=== PATIENT | male | born 1960 | race Caucasian/White ===

== ENCOUNTER 2022-07-02 11:27 | Emergency (ER) | payer OTHER, SELFPAY ==
[2022-07-02 11:57] VITALS: BP 108/74; PULSE 100; RESP 18; TEMP 36.3; O2SAT 96; BMI 31.5
--- NOTE | 2022-07-02 12:26 | ED.NURSE ---
last tetanus 07/07/2016
--- NOTE | 2022-07-02 12:45 | ED.NURSE ---
wound was dressed with bacitracin, bandaid, gauze, coban. did give extra gloves. was told not to get wet.
--- OUTSIDE RECORDS SUMMARY | 2022-07-02 12:48 | XMS_ITS ---
:1960 Author Care Team Providers Name Role Phone Naga Busby Primary Care Provider Unavailable Allergies Code Code System Name Reaction Severity Status Onset NKDA ? Notes: Allergen: NO KNOWN ALLERGIES Medications Name Status Start Date Stop Date ? ? aspirin 81 mg chewable tablet Active ? No t available CHEW 1 TABLET BY MOUTH EVERY DAY glipizide 10 mg tablet Completed ? Take 0.5 tablets every day by oral route. glipizide 5 mg tablet Completed ? 06/28/2022 TAKE ONE TABLET(5MG) BY MOUTH EVERY DAY lisinopril 10 mg tablet Active ? Not avai lable Take 1 tablet every day by oral route. lisinopril 2.5 mg tablet Completed ? 022 TAKE ONE TABLET BY MOUTH EVERY DAY metformin 500 mg tablet Active ? Not avai lable TAKE TWO TABLETS BY MOUTH TWICE A DAY pravastatin 20 mg tablet Completed 05/25/2015 016 1 qpm simvastatin 10 mg tablet Active ? Not enzo ilable TAKE ONE TABLET BY MOUTH EVERY DAY IN THE EVENING Problems Name Status Onset Date Source ? Type 2 Diabetes Mellitus Active 08/12/2021 ? Hyperlipidemia Active 04/12/2022 ? Essential Hypertension Active 04/12/2022 ? Notes: Problem: Tobacco user Status: N on-Chronic Problem: Diabetes mellitus without complication Status: Non-Chronic Problem: Lactose intolerance Status: Non-Chronic Problem: Type II diabetes mellitus uncontrolled Status: Non-Chronic Procedures None recorded. Results Lab Results Date Name Specimen Result Interpretation Description Value Range Status Address ? 02/18/2022 CBC W/ Auto High White Blood 11.12 ? [facility] Diff Count Hospital: [address] [facility] ? ? ? Hemoglobin 14.2 ? Final [facility] Hospital: [address] [facility] ? ? ? Platelet Count 302 ? Final [facility] Hospital: [address] [facility] 02/18/2022 Lipid Panel, ? Creatinine 1.3 ? [facility] Serum Office: [facility] [place], [place] ? ? ? Alt 34 ? Final [place] Office: [address] [facility] [place] [place], [place] ? ? ? Total 172 ? Final [place] Cholesterol Offic e: [address] [facility] [place], [place] ? ? High Triglycerides 224 ? Final Fa [place] Office: [address] [facility] [place] [place], [place] ? ? ? Hdl 43 ? Final [place] Office: [address] [facility] [place] [place], [place] ? ? ? Ldl 84 ? Final [place] Office: [address] Tawnya Jorge, [place] 02/18/2022 CMP, Serum or ? Creatinine 1.3 ? F inal [place] Plasma Office: [address] [facility] [place], [place] ? ? ? Alt 34 ? Final [place] Office: [address] [facility] [place] [place], [place] ? ? ? Total 172 ? Final [place] Cholesterol Offic e: [address] [facility] [place], [place] ? ? High Triglycerides 224 ? Final [place] Office: [address] [facility] [place] [place], [place] ? ? ? Hdl 43 ? Final [place] Office: [address] [facility] [place] [place], [place] ? ? ? Ldl 84 ? Final [place] Office: [address] [facility] [place] [place], [place] 02/18/2022 HbA1C High Hemoglobin a1C 6.7 ? Keyana Jean (Hemoglobin Offic e: 1415 a1C), Blood [facility] Alex Ramiresibault 07/21/2021 Lipid Panel, ? Creatine 1.0 ? Keyana otto [place] Serum Office: [address] [facility] [place] [place], [place] ? ? ? Alt 22 ? Final [place] Office: [address] [facility] [place] [place], [place] ? ? ? Total 173 ? Final [place] Cholesterol Offic e: [address] [facility] [place], [place] ? ? ? Triglycerides 249 ? Final [place] Office: [address] [facility] [place] [place], [place] ? ? ? Hdl 48 ? Final [place] Office: [address] [facility] [place] [place], [place] ? ? ? Ldl 75 ? Final [place] Office: [address] [facility] [place] [place], [place] 07/21/2021 CMP, Serum or ? Creatine 1.0 ? Fernandez phipps [place] Plasma Office: [address] [facility] [place] [place], [place] ? ? ? Alt 22 ? Final [place] Office: [address] [facility] [place], [place] ? ? ? Total 173 ? Final [place] Cholesterol Offic e: [address] [facility] [place], [place] ? ? ? Triglycerides 249 ? Final [place] Office: [address] [facility] [place], [place] ? ? ? Hdl 48 ? Final [place] Office: [address] [facility] [place], [place] ? ? ? Ldl 75 ? Final [place] Office: 14 [address] Tawnya chambers [place], [place] 07/21/2021 Hemoglobin ? Creatinine 1.0 ? Keyana l [place] a1C/hemoglobin Of fice: 1415 Total, QN, Town S quare Blood [place], [place] ? ? ? Alt 22 ? Final [place] Office: [address] Tawnya chambers [place], [place] ? ? ? Total 173 ? Final [place] Cholesterol Offic e: [address] [facility] [place], [place] ? ? ? Triglycerides 249 ? Final [place] Office: [address] [facility] [place], [place] ? ? ? Hdl 48 ? Final [place] Office: [address] Tawn[address] chambers [place], [place] ? ? ? Ldl 75 ? Final [place] Office: [address] [facility] [place], [place] ? ? ? White Blood 10.83 ? Final Clarsia [place] Count Office: 14 15 Tawn[address] chambers [place], [place] ? ? ? Hemoglobin 15.2 ? Final Farib jazmin Office: 14 [address] Tawn[address] chambers [place], [place] ? ? ? Platelet Count 288 ? Final F [place] Office: 14 [address] Tawn[address] chambers [place], [place] ? ? ? Hemoglobin 15.2 ? Final Farib jazmin Office: 14 [address] Tawn[address] chambers [place], [place] 07/21/2021 CBC W/ Auto ? Creatinine 1.0 ? Fin al [place] Diff Office: 14 [address] Tawnya chambers [place], [place] ? ? ? Alt 22 ? Final [place] Office: [address] [facility] [place], [place] ? ? ? Total 173 ? Final [place] Cholesterol Offic e: [address] [facility] [place], [place] ? ? ? Triglycerides 249 ? Final [place] Office: [address] [facility] [place], [place] ? ? ? Hdl 48 ? Final [place] Office: 14 [address] Tawnya chambers [place], [place] ? ? ? Ldl 75 ? Final [place] Office: [address] [facility] [place], [place] ? ? ? White Blood 10.83 ? Final Clarisa [place] Count Office: 14 [address] Tawn[address] chambers [place], [place] ? ? ? Hemoglobin 15.2 ? Final Farib jazmin Office: [address] [facility] [place], [place] ? ? ? Platelet Count 288 ? Final F a[place] Office: [address] [facility] [place], [place] ? ? ? Hemoglobin 15.2 ? Final Farib jazmin Office: [address] [facility] [place], [place] 07/21/2021 Lipid Panel, ? Creatinine 1.0 ? Fi nal [place] Serum Office: 14 [address] [facility] [place], [place] ? ? ? Alt 22 ? Final [place] Office: [address] [facility] [place], [place] ? ? ? Total 173 ? Final [place] Cholesterol Offic e: [address] [facility] [place], [place] ? ? ? Triglycerides 249 ? Final Fa [place] Office: [address] [facility] [place], [place] ? ? ? Hdl 48 ? Final [place] Office: [address] [facility] [place], [place] ? ? ? Ldl 75 ? Final [place] Office: [address] [facility] [place], [place] ? ? ? White Blood 10.83 ? Final Clarisa [place] Count Office: 14 [address] Tawnya chambers [place], [place] ? ? ? Hemoglobin 15.2 ? Final Farib jazmin Office: [address] [facility] [place], [place] ? ? ? Platelet Count 288 ? Final F [place] Office: [address] [facility] [place], [place] ? ? ? Hemoglobin 15.2 ? Final Farib jazmin Office: [address] [facility] [place], [place] 07/21/2021 CMP, Serum or ? Creatinine 1.0 ? F inal [place] Plasma Office: [address] [facility] [place], [place] ? ? ? Alt 22 ? Final [place] Office: [address] [facility] [place], [place] ? ? ? Total 173 ? Final [place] Cholesterol Offic e: [address] [facility] [place], [place] ? ? ? Triglycerides 249 ? Final [place] Office: [address] [facility] [place], [place] ? ? ? Hdl 48 ? Final [place] Office: 14 [address] [facility] Alex Dunbar[place] ? ? ? Ldl 75 ? Final [place] Office: 14 [address] [facility] Alex [place]bar[place] ? ? ? White Blood 10.83 ? Final Clarisa [place] Count Office: 14 15 [facility] Alex [place] ? ? ? Hemoglobin 15.2 ? Final Farib jazmin Office: 14 [address] [facility] Alex [place] ? ? ? Platelet Count 288 ? Final F a[place] Office: 14 [address] [facility] Alex [place] ? ? ? Hemoglobin 15.2 ? Final Farib jazmin Office: 14 [address] [facility] Alex [place]bar[place] 02/08/2021 HbA1C ? No observation ? ? ? [place] (Hemoglobin recorded. Of fice: 1415 a1C), Blood [facility] 02/05/2021 HbA1C ? Humoglobin a1C 7.1 ? Keyana otto [place] (Hemoglobin Offic e: 1415 a1C), Blood [facility] 11/04/2020 CBC W/ Auto ? Creatinine 1.19 ? Fin desire [facility] Diff [place] [facility]: [address], [place] ? ? ? Alt 28 ? Final [facility] [place] [facility]: [address], [place] ? ? ? Hdl 46 ? Final [facility] [place] [facility]: [address] [place] ? ? ? Ldl 82 ? Final [facility] [place] [facility]: [address] [place] ? ? ? Total 159 ? Final [facility] Cholesterol [place] [facility] [facility]: [address] [place] ? ? High Triglycerides 156 ? Final Al [facility] [place] [facility]: [address] [place] ? ? ? Wbc 10.5 ? Final [facility] [place] [facility]: [address] [place] ? ? ? Hgb 15.4 ? Final [facility] [place] [facility]: [address] [place] ? ? ? Platelet Count 305 ? Final A [facility] [place] [facility]: [address], [place] 11/04/2020 Lipid Panel, ? Creatinine 1.19 ? Fi nal [facility] Serum [place] [facility]: [address], [place] ? ? ? Alt 28 ? Final [facility] [place] [facility]: [address], [place] ? ? ? Hdl 46 ? Final [facility] [place] [facility]: [address] [place] ? ? ? Ldl 82 ? Final [facility] [place] [facility]: [address] [place] ? ? ? Total 159 ? Final [facility] Cholesterol [place] [facility]: [address] [place] ? ? High Triglycerides 156 ? Final Al [facility] [place] [facility]: [address], [place] ? ? ? Wbc 10.5 ? Final [facility] [place] [facility]: [address], [place] ? ? ? Hgb 15.4 ? Final [facility] [place] [facility]: [address] [place] ? ? ? Platelet Count 305 ? Final A [facility] [place] [facility]: [address] [place] 11/04/2020 CMP, Serum or ? Creatinine 1.19 ? F inal [facility] Plasma [place] [facility]: [address], [place] ? ? ? Alt 28 ? Final [facility] [place] [facility]: [address], [place] ? ? ? Hdl 46 ? Final [facility] [place] [facility]: [address] [place] ? ? ? Ldl 82 ? Final [facility] [place] [facility]: [address] [place] ? ? ? Total 159 ? Final [facility] Cholesterol [place] [facility]: [address] [place] ? ? High Triglycerides 156 ? Final [facility] [place] [facility]: [address] [place] ? ? ? Wbc 10.5 ? Final [facility] [place] [facility]: [address], [place] ? ? ? Hgb 15.4 ? Final [facility] [place] [facility]: [address] [place] ? ? ? Platelet Count 305 ? Final [facility] [place] [facility]: [address] [place] 11/04/2020 Urinalysis, ? No observation ? ? ? Paml Patient Complete recorded. [facility] b: [address] Bernice Kaplan Past Encounters 06/28/2022 Type 2 Diabetes Mellitus without Complic ation; Hyperlipidemia; Essential Hypertension Naga Busby MD: [address] [place] [phone], Ph. 04/19/2022 Type 2 Diabetes Mellitus without Complic ation; Essential Hypertension Naga Busby MD: [address] [place] [phone], Ph. 04/12/2022 Essential Hypertension; Type 2 Diabetes Mellitus without Complication; Hyperlipidemia Naga Busby MD: [address] [place] [phone], Ph. 10/26/2021 Type 2 Diabetes Mellitus without Complic ation Naga Busby MD: [address] [place] [phone], Ph. 08/12/2021 Type 2 Diabetes Mellitus without Complic ation Naga Busby MD: [address] [facility] [place] [phone], Ph. 07/15/2021 Type 2 Diabetes Mellitus without Complic ation Naga Busby MD: [address] [facility] [place] [phone], Ph. 03/11/2021 Type 2 Diabetes Mellitus without Complic ation Naga Busby MD: [address] [facility] [place] [phone], Ph. Social History Tobacco Smoking Status Current Some Day Smoker Vaccine List Notes: COVID boosted (two times) Plan of Care Patient Goals get glucose down and then BP and lipids Patient Instructions watch for cough, eat regularly continue diet, watch for diarrhea from metformin and cough from lisinopril, cut glipizide in half and take in am, call a bout any problems continue diet and metformin, omit simva statin (another statin could be substituted) , call in a week eat smaller meals, try to loose weight, report diarrhea share booklet on diet with family record BP 2-3 times a week in afternoon , record in diary, bring to next visit Reminders Provider Appointments None recorded. ? ? Lab None recorded. ? ? Referral None recorded. ? ? Procedures None recorded. ? ? Surgeries None recorded. ? ? Imaging None recorded. ? ? Vitals 06/28/2022 05:15PM ESTABLISHED PATIENT Height Weight BMI Blood Pressure 5 ft 5 in 170 lbs 28.3 kg/m2 124/75 mm[Hg] 04/19/2022 05:15PM ESTABLISHED PATIENT Height Weight BMI Blood Pressure 5 ft 5 in 170 lbs 28.3 kg/m2 136/91 mm[Hg] 10/26/2021 06:30PM Established patient 20 Weight Blood Pressure 165.8 lbs 143/91 mm[Hg] 08/12/2021 11:20AM Established patient 20 Weight Blood Pressure 165 lbs 149/93 mm[Hg] 07/15/2021 09:00AM Established patient 20 Weight Blood Pressure 162 lbs 124/79 mm[Hg] 03/11/2021 09:00AM Established patient 20 Weight Blood Pressure 165 lbs 144/82 mm[Hg] 11/04/2020 Weight Blood Pressure 160 lbs 126/82 mm[Hg] 04/23/2019 Blood Pressure 111/68 mm[Hg] 10/25/2018 Blood Pressure 141/95 mm[Hg] 09/18/2018 Blood Pressure 120/68 mm[Hg] 08/16/2016 Blood Pressure (1) 120/76 mm[Hg] (2) 142/91 mm[Hg] 02/25/2016 Blood Pressure 125/85 mm[Hg] 09/24/2015 Blood Pressure (1) 122/77 mm[Hg] (2) 136/85 mm[Hg] 07/16/2015 Blood Pressure 123/78 mm[Hg] 02/03/2015 Blood Pressure 142/89 mm[Hg] 11/11/2014 Blood Pressure 142/89 mm[Hg] 10/14/2014 Blood Pressure 133/90 mm[Hg] 09/16/2014 Blood Pressure 118/68 mm[Hg]
--- OUTSIDE RECORDS SUMMARY | 2022-07-02 12:48 | XMS_ITS | Encounter Summary ---
:1960 Author Reason for Visit this is a 62 year old man returning in [facility] up for his diabetes, not taking glipizide, glucoses arnd 120, missed las t apt, needs regular visits Assessment and Plan 1. Type 2 diabetes mellitus without com plication last HBA1C 6.7 and reported control is good ? CBC ? CMP, serum or plasma ? lipid panel, serum ? hemoglobin A1C/hemoglobin total, QN, blood ? microalbumin, urine ? noninvasive colorectal cancer DNA + o ccult blood screening, QL, stool ? aspirin 81 mg chewable tablet 2. Hyperlipidemia no probs with med ? simvastatin 10 mg tablet ? lisinopril 10 mg tablet 3. Essential hypertension last BP 124/79 ? lisinopril 10 mg tablet Discussion Note: None recorded.Patient educational handouts: No information available. Plan of Care Patient Instructions watch for cough, eat regularly Reminders Provider Appointments Return to Office on or around Naga Busby MD 12/26/2022 ? Lab Work on or around [place] [facility], [facility] 12/26/2022 Lab Cbc 06/28/2022 [facility] ital- Lab ? CMP, Serum or Plasma 06/28/2022 [facility]- Lab ? Lipid Panel, Serum 06/28/2022 [facility]- Lab ? Hemoglobin 06/28/2022 [facility] ital- a1C/hemoglobin Total, QN, Lab Blood ? Microalbumin, Urine 06/28/2022 [facility]- Lab ? Noninvasive Colorectal 06/28/2022 [facility]- Cancer DNA + Occult Blood Lab Screening, QL, Stool Referral None recorded. ? ? Procedures None recorded. ? ? Surgeries None recorded. ? ? Imaging None recorded. ? ? Medications Name Start Date ? ? aspirin 81 mg chewable tablet ? CHEW 1 TABLET BY MOUTH EVERY DAY lisinopril 10 mg tablet ? Take 1 tablet every day by oral route. metformin 500 mg tablet ? TAKE TWO TABLETS BY MOUTH TWICE A DAY simvastatin 10 mg tablet ? TAKE ONE TABLET BY MOUTH EVERY DAY IN THE EVENING Medications Administered None recorded. Vitals Height Weight BMI Blood Pressure 5 ft 5 in 170 lbs 28.3 kg/m2 124/75 mm[Hg] Results Lab Results None recorded. Allergies Code Code System Name Reaction Severity Onset NKDA ? ? ? Notes: Allergen: NO KNOWN ALLERGIES Problems Name Status Onset Date Source ? Type 2 Diabetes Mellitus Active 08/12/2021 ? Hyperlipidemia Active 04/12/2022 ? Essential Hypertension Active 04/12/2022 ? Notes: Problem: Tobacco user Status: N on-Chronic Problem: Diabetes mellitus without complication Status: Non-Chronic Problem: Lactose intolerance Status: Non-Chronic Problem: Type II diabetes mellitus uncontrolled Status: Non-Chronic Procedures None recorded. Vaccine List Notes: COVID boosted (two times) Social History Tobacco Smoking Status Current Some Day Smoker What is your level of alcohol Occasional Notes: o nly beer consumption? Do you feel stressed (tense, restless, [id number] nervous, or anxious, or unable to sleep at night)? Functional Status Unknown. Past Encounters 06/28/2022 Type 2 Diabetes Mellitus without Complic ation; Hyperlipidemia; Essential Hypertension Naga Busby MD: [address] [place] [phone], Ph. History of Present Illness None recorded. Review of Systems ? Notes: <div>no angina, not sob</div > Physical Exam None recorded.
--- OUTSIDE RECORDS SUMMARY | 2022-07-02 12:48 | XMS_ITS | Encounter Summary ---
:1960 Author Reason for Visit this [facility] 61 [facility]. He has stopped his simvastatin because he thought it was ca using his blood sugars to go up, no myalgias. He has been incrreasingly careful with h is meal planning but his weight is up. [facility] glucoses are arnd 150. Assessment and Plan 1. Type 2 diabetes mellitus without com plication based on his home reporting his control needs to improve ? glipizide 10 mg tablet ? 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 Essential hypertension last BP 143/91 and dropping slightly to 136/91 Discussion Note hesitant about booster, need ro inquire each visit Patient educational handouts: No information available. Plan of Care Patient Goals get glucose down and then BP and lipids Patient Instructions continue diet, watch for diarrhea from metformin and cough from lisinopril, cut glipizide in half and take in am, call a bout any problems Reminders Provider Appointments Return to Office on or around Naga Busby MD 12/26/2022 ? Lab Work on or around Miranda Byrd, [facility] 12/26/2022 Lab None recorded. ? ? Referral Digital X Ray Service Engineer Referral 04/19/2022 ? Procedures None recorded. ? ? Surgeries [...] in 170 lbs 28.3 kg/m2 136/91 mm[Hg] Results Lab Results None recorded. Allergies [...] consumption? Do you feel stressed (tense, restless, [id number] nervous, or anxious, or unable to sleep at night)? Functional Status Unknown. Past Encounters 04/19/2022 Type 2 Diabetes Mellitus without Complic ation; Essential Hypertension Naga Busby MD: [address] [place] [phone], Ph. 04/12/2022 Essential Hypertension; Type 2 Diabetes Mellitus without Complication; Hyperlipidemia Naga Busby MD: [address] [place] [phone], Ph. History of Present Illness None recorded. Review of Systems None recorded. Physical Exam None recorded.
--- OUTSIDE RECORDS SUMMARY | 2022-07-02 12:48 | XMS_ITS | Encounter Summary ---
:1960 Author Reason for Visit this is a 61 year old man for telephone visit as he returns from work arnd 4:30 pm. He has reduced his consumption of sugary foods as well as limiting his meat. He has stopped smoking. In spite of his numbers he thinks that the changes in simvastatin and lisinopril have effected his glucose numbers. He is also requesting an medical director of hospice exam. Assessment and Plan 1. Essential hypertension lisinopril was increased from 2.5 mg to 10 mg last visit, no BP today 2. Type 2 diabetes mellitus without com plication HBA1C 6.7 with glucose 97 ? medical director of hospice referral 3. Hyperlipidemia lipids 172/214, as he thinks that simva statin is effecting his glucose- omit it for a week and reeval by phone Discussion Note: None recorded.Patient educational handouts: No information available. Plan of Care Patient Instructions continue diet and metformin, omit simva statin (another statin could be substituted) , call in a week Reminders Provider Appointments Return to Office on or around Naga Busby MD 12/26/2022 ? Lab Work on or around Miranda Byrd, [facility] 12/26/2022 Lab None recorded. ? ? 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 Procedures None recorded. ? ? Surgeries [...] THE EVENING Medications Administered None recorded. Vitals None recorded. Results Lab Results None recorded. Allergies Code [...] consumption? Do you feel stressed (tense, restless, [id number] nervous, or anxious, or unable to sleep at night)? Functional Status Unknown. Past Encounters 04/12/2022 Essential Hypertension; Type 2 Diabetes Mellitus without Complication; Hyperlipidemia Naga Busby MD: [address] [place] [phone], Ph. History of Present Illness None recorded. Review of Systems None recorded. Physical Exam None recorded.
--- OUTSIDE RECORDS SUMMARY | 2022-07-02 12:48 | XMS_ITS | Clinical Summary ---
:1960 Author Organization [facility] [place] [address] Care Team Providers Name Role Phone Navin Ornelas MD Unavailable Navarro Knowles MD Primary Care Provider [phone] Allergies No known active allergies Medications Medication Sig Dispensed Refills Start Date End Date Status aspirin enteric Take 1 tablet by 0 08/29/2012 Active coated 81 mg tablet mouth once daily with a meal. lisinopril (PRINIVIL; Take 1 tablet by 0 02/01/2016 Active ZESTRIL) 2.5 mg mouth once daily. tablet simvastatin (ZOCOR) Take 1 tablet by 0 02/01/2016 Active 20 mg tablet mouth at bedtime. metFORMIN Take 2 tablets by 0 05/03/2016 A ctive (GLUCOPHAGE) 1,000 mg mouth 2 times daily tablet with meals. 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 Problems Problem Noted Date Anal fissure 01/21/2010 Immunizations Name Administration Dates Next Due Td (Age >=7 Years) 05/21/2004 Family History Medical History Relation Name Comments Diabetes Daughter 2 Diabetes Mother Diabetes Sister 11 Thyroid Disease Sister 12 Relation Name Status Comments Brother 1 Alive Brother 2 Alive Brother 3 Alive Brother 4 Alive Brother 5 Daughter 1 Alive Daughter 2 Father (Age 70s) Mother Alive Sister 1 Alive Sister 2 Alive Sister 3 Alive Sister 4 Alive Sister 5 Alive Sister 6 Alive Sister 7 Alive Sister 8 Sister 9 Sister 10 Sister 11 Sister 12 Son 1 Alive Son 2 Alive Social History Tobacco Use Types Packs/Day Years Used Date Current Every Day Smoker Cigarettes 1 Smokeless Tobacco: Never Used Tobacco Cessation: Ready to Quit: No; Co unseling Given: Yes Comments: pack in two days Alcohol Use Standard Drinks/Week Comments Yes 0 (1 standard drink = 0.6 oz pure alcoho l) occassional Sex Assigned at Date Recorded Not on file Obstetrics History Last Filed Vital Signs Vital Sign Reading Time Taken Comments Blood Pressure 130/88 04/22/2021 9:10 AM CDT Pulse 73 04/22/2021 9:10 AM CDT Temperature 36.7 ??C (98 ??F) 05/03/2016 11:10 AM CDT Respiratory Rate 20 02/04/2016 8:39 AM CDT Oxygen Saturation 98% 04/22/2021 9:10 AM CDT Inhaled Oxygen Concentration - - Weight 74.1 kg (163 lb 6.4 oz) 04/22/2021 9:10 AM CDT Height 164 cm (5' 4.57) 05/03/2016 11:10 AM CDT Body Mass Index 27.56 05/03/2016 11:10 AM CDT Plan of Treatment Health Maintenance Due Date Last Done Comments Pneumococcal series for age 19-64 (1 - 1968 PCV) Tdap 1973 Hepatitis C screening for age 18-79 1980 Colonoscopy through age 75 2007 Zoster (shingles) series for age 50+ (1 of 2012 2) Tetanus booster 05/21/2014 05/21/2004 Depression screening for age 12+ 01/31/2017 02/01/2016 BMI (ht and wt on same day) for age 18+ 05/03/2017 05/03/20 16, 02/01/2016 COVID-19 vaccine series (3 - Booster for 03/05/2021 021, 12/18/2020 Pfizer series) Influenza for age 50-64 04/28/2022 Lipids for age 45-75 11/04/2025 11/04/2020, 09/22/2014 Results Not on filefrom Last 3 Months Insurance Payer Benefit Plan / Subscriber ID Effective Dates Phone Addre ss Type Group WC WORK[employer] BRADLEY MARIN [id number] 2021-Pro [address]UST[address] [place] [address] [employer] Occ Other 08/28/2000 ATTN [facility] [address] [address] [place] [address] Care Teams Director Motion Picture Relationship Specialty Start Date End Date Navarro Knowles MD PCP - General Family Practice 04/22/21 [address] [place] [address] Navin Ornelas MD Family Practice 07/18/[address] [place] [address] [address] [place] [address]
--- NOTE | 2022-07-04 15:38 | ED.WOUNDLAC ---
HPI - Wound/Laceration General Chief Complaint: Laceration/Wound Stated Complaint: Cut on Rt pinky finger Time Seen by Provider: 07/02/22 11:52 History of Present Illness HPI narrative: 62-year-old man presenting to the emergency department after a laceration sustained to his right 5th finger while at work. This actually occurred yesterday. Apparently reached to or into a tape dispenser and shaved the distal aspect of his finger. Sounds like it bled a good deal. Managed to control the bleeding. Here for further cares/recommendations. Looks like current on tetanus. This injury is not restricting movement; it is just painful. Has been applying alcohol and salt; the latter to stop the bleeding. Related Data Home Medications Medication Instructions Recorded Confirmed aspirin 81 mg tablet,delayed mg 07/02/22 release glipizide 5 mg tablet mg 07/02/22 lisinopril 10 mg tablet mg 07/02/22 metformin 500 mg tablet mg 07/02/22 simvastatin 10 mg tablet mg 07/02/22 Allergies Allergy/AdvReac Type Severity Reaction Status Date / Time No Known Drug Allergies Allergy Verified 07/02/22 12:01 Review of Systems Status of ROS: Reports: 6 or more systems reviewed and unremarkable except as noted in History and below [facility] Social History Smoking Status: Current every day smoker What tobacco products do you use: cigarettes Smoking packs per day: 1 Smoking cigarettes per day: 20.0 Years smoked: 45 Smoking pack-years: 45.00 Do you use any of these nicotine containing products: None Second hand tobacco smoke exposure: No How often do you have a drink containing alcohol: 2-4 times a month How many standard drinks containing alcohol do you have on a typical day: 5 or 6 How often do you have six or more drinks on one occasion: Weekly AUDIT-C Alcohol total score: 7 Non-prescribed substance use: denies use service: No Exam Narrative: Exam Narrative: Pleasant. NAD. Visit is conducted in Estonian by myself also aided by cook tortilla. dressed in work hat. Favoring right hand. Examination of this hand reveals an oval avulsion nearly full dermal. It is not actively bleeding. It is at the ulnar side of the distal phalanx; about 1 cm in maximal dimension. He pulls away with efforts at manipulation or exam. Appears to be painful. Well-perfused flexing extending all joints Const: Vital Signs, click to edit/add: Pulse is 100 Documenting provider has reviewed patient's vital signs: yes Course Course Hospital Course: This is a clean wound at this point. I do not think that there is enough here to over-sew nor is actively bleeding. Returned to apply antibiotic ointment and Gelfoam, Band-Aid and light gauze wrap. Hopefully the Gelfoam will provide further matrix and also limit further bleeding. Vital Signs Vital signs: Initial Vital Signs Temperature 97.3 F L 07/02/22 11:57 Temperature Source Temporal Artery Scan 07/02/22 11:57 Pulse Rate 100 07/02/22 11:57 Respiratory Rate 18 07/02/22 11:57 Blood Pressure 108/74 07/02/22 11:57 Blood Pressure Mean 85 07/02/22 11:57 Pulse Oximetry 96 07/02/22 11:57 Oxygen Delivery Method 07/02/22 11:57 Vital Signs Temperature 97.3 F L 07/02/22 11:57 Pulse Rate 100 07/02/22 11:57 Respiratory Rate 18 07/02/22 11:57 Blood Pressure 108/74 07/02/22 11:57 Pulse Oximetry 96 07/02/22 11:57 Oxygen Delivery Method 07/02/22 11:57 Temperature 97.3 F L 07/02/22 11:57 Pulse Rate 100 07/02/22 11:57 Respiratory Rate 18 07/02/22 11:57 Blood Pressure 108/74 07/02/22 11:57 Pulse Oximetry 96 07/02/22 11:57 Oxygen Delivery Method 07/02/22 11:57 Discharge Plan Discharge Clinical Impression: Avulsion of finger Patient Disposition: Home, Self-Care Condition: Stable Additional Instructions: While it is okay for initial cleaning or to try to stop bleeding, I would avoid further application of alcohol or hydrogen peroxide or salt as they will delay healing. Ibuprofen, elevation for comfort. Keep this current dressing on until Monday. Try not to take off the Gelfoam that is in place over the next week --if falls off, replace. After Monday change dressing daily with antibiotic ointment and Band-Aid. After a week can probably change to a dry dressing. Will need to protect from getting wet over this next week by wearing a finger cot / condom or gloves while at work. Si iván est? iván para la limpieza inicial o para tratar de detener el sangrado, evitar?a la aplicaci?n adicional de alcohol o per?xido de hidr?sourav o nilay, ya que retrasar?n la curaci?n. Ibuprofeno, elevaci?n para mayor comodidad. Mantenga zeke vendaje actual hasta el es. Trate de no quitarse el Gelfoam que est? en rodriguez lugar martha la pr?xima semana; si se , reempl?celo. Despu?s del lunes, cambie el vendaje diariamente con nikolay?ento antibi?bertha y curita. Despu?s de amanda semana probablemente puede cambiar a un vendaje seco. Tendr? que protegerse de mojarse martha la pr?xima semana usando amanda cuna / cond?n de dedo o guantes en el trabajo. Prescriptions: No Action metformin 500 mg tablet Label Comments: TAKE TWO TABLETS BY MOUTH TWICE A DAY simvastatin 10 mg tablet Label Comments: TAKE ONE TABLET BY MOUTH EVERY DAY IN THE EVENING aspirin 81 mg tablet,delayed release (DR/EC) Label Comments: TAKE ONE TABLET BY MOUTH EVERY DAY lisinopril 10 mg tablet Label Comments: TAKE ONE TABLET BY MOUTH EVERY DAY glipizide 5 mg tablet Label Comments: TAKE ONE TABLET(5MG) BY MOUTH EVERY DAY Follow Up/Referrals: Provider,Not a Local [Primary Care Provider] - Stand Alone Forms: MyHealth Info Instructions
== END 2022-07-02 12:55 | disposition home or self-care (01) ==
PROVIDERS: Emergency Provider Family Medicine
DX: S61.216A Laceration without foreign body of right little finger without damage to nail, initial encounter (principal); W26.8XXA Contact with other sharp object(s), not elsewhere classified, initial encounter; Y93.9 Activity, unspecified; Y92.9 Unspecified place or not applicable; Y99.0 Civilian activity done for income or pay
CPT/HCPCS: 99282; 99283

== ENCOUNTER 2023-04-14 16:35 | Emergency (ER) | payer SELFPAY ==
[2023-04-14 17:05] VITALS: BP 139/86; PULSE 87; RESP 18; TEMP 36.5; O2SAT 98
--- NOTE | 2023-04-14 18:01 | ED_ITS ---
HPI - General Adult General Chief complaint: Abdominal Pain Stated complaint: from urgent care, possbile pancreatitis Time Seen by Provider: 04/14/23 17:41 History of Present Illness HPI narrative: Patient reports pain in epigastric area for about one week. Pain seems worse with activity. 62-year-old man presenting to the emergency department with concern of epigastric area pain that begins around 9 or 10:00 a.m. escalating over the course the day and then settles by evening. He just can not identify any exacerbating or relieving factors. He does lift number of things at work but this does not actually exacerbated. Is worried something might be twisted inside. No nausea associated. There has been no trauma. Does not drink excessively. No nausea/vomiting. No shortness of breath. No fever. Does not have diagnosis of GERD. Rarely smokes cigarettes. Denies constipation. Tried some unclear pills from given by a friend, apparently these pills are from [place]. Unclear what these are. Related Data Home Medications Medication Instructions Recorded Confirmed aspirin 81 mg tablet,delayed mg 07/02/22 04/14/23 release glipizide 5 mg tablet mg 07/02/22 04/14/23 lisinopril 10 mg tablet mg 07/02/22 04/14/23 metformin 500 mg tablet mg 07/02/22 04/14/23 simvastatin 10 mg tablet mg 07/02/22 04/14/23 Previous Rx's Medication Instructions Recorded omeprazole 20 mg capsule,delayed 40 mg (2 x 20 mg) PO DAILY 15 days 04/14/23 release #30 caps Allergies Allergy/AdvReac Type Severity Reaction Status Date / Time No Known Drug Allergies Allergy Verified 04/14/23 14:36 Review of Systems Status of ROS: Reports: 6 or more systems reviewed and unremarkable except as noted in History and below PFSH PFS Social History Smoking Status: Smoker, status unknown Do you use any of these nicotine containing products: None Second hand tobacco smoke exposure: No How often do you have a drink containing alcohol: 2-4 times a month How many standard drinks containing alcohol do you have on a typical day: 1 or 2 How often do you have six or more drinks on one occasion: Weekly AUDIT-C Alcohol total score: 5 Non-prescribed substance use: denies use service: No Exam Narrative: Exam Narrative: Very pleasant. Energetic. NAD. Transitions without difficulty. Breathing easily. Oropharynx is unremarkable. Lungs are clear. Heart with regular rate and rhythm without murmur rub or gallop.. Abdomen is soft and not really tender. No masses. Not really able to reproduce this discomfort. Seems in the subxiphoid area that is describing it. He is not tender in the rib margins. Normal bowel sounds. Const: Vital Signs, click to edit/add: Vital Signs - 24 hr 04/14/23 17:05 Temperature 97.7 F Pulse Rate [Pulse Oximeter] 87 Respiratory Rate 18 Blood Pressure [facility]] 139/86 Pulse Oximetry 98 Documenting provider has reviewed patient's vital signs: yes Course Vital Signs Vital signs: Initial Vital Signs Temperature 97.7 F 04/14/23 17:05 Temperature Source Temporal Artery Scan 04/14/23 17:05 Pulse Rate 87 04/14/23 17:05 Respiratory Rate 18 04/14/23 17:05 Blood Pressure 139/86 04/14/23 17:05 Blood Pressure Mean 103 04/14/23 17:05 Pulse Oximetry 98 04/14/23 17:05 Vital Signs Temperature 97.7 F 04/14/23 17:05 Pulse Rate 87 04/14/23 17:05 Respiratory Rate 18 04/14/23 17:05 Blood Pressure 139/86 04/14/23 17:05 Pulse Oximetry 98 04/14/23 17:05 Temperature 97.6 F 04/14/23 20:00 Pulse Rate 68 04/14/23 20:00 Respiratory Rate 16 04/14/23 20:00 Blood Pressure 138/88 04/14/23 20:00 Pulse Oximetry 97 04/14/23 20:00 Oxygen Delivery Method Room Air 04/14/23 20:00 Medical Decision Making MDM Narrative Medical decision making narrative: Can certainly run some screening labs looking for evidence of pancreatitis or gallbladder disease. Puzzling clinical course frankly. Would almost seem to by timing be musculoskeletal or chest wall in some way but not consistent with clinical exam. Doubt vascular disruption given clinical picture/ story. I suppose exertional/cardiac strain? Not not pleuritic. Malignancy? Will run screening labs these might focus further evaluation. Also chest x-ray. Had some concern of a hernia as I understand it. I suppose a paraesophageal hernia/hiatal hernia might cause some discomfort here. Pneumothorax/pneumomediastinum? Labs show mild elevation white count. Chest x-ray by my read looks unremarkable. Maybe there is some mild gastritis. I would screen outpatient potentially for H pylori. No interventions were needed here. See patient discharge plan Lab Data Lab results reviewed: Yes I reviewed the patient's lab results Labs: Lab Results 04/14/23 04/14/23 Range/Units 18:24 18:30 WBC 12.31 H (4.50-11.00) K/uL RBC 4.84 (4.30-5.90) m/uL Hgb 14.6 (13.5-17.5) gm/dL Hct 45.3 (37.0-53.0) % MCV 94 (80-100) fL MCH 30 (26-34) pg MCHC 32 (32-36) gm/dL RDW Coeff of Gold 13.1 (11.5-15.5) % Plt Count 329 (140-440) K/uL Neut % (Auto) 58.2 (42.0-72.0) % Lymph % (Auto) 31.3 (20-44) % Waldo % (Auto) 6.3 (0.0-11.0) % Eos % (Auto) 3.4 (0.0-7.0) % Baso % (Auto) 0.6 (0.0-3.0) % Neut # (Auto) 7.20 H (1.7-7.0) K/uL Lymph # (Auto) 3.90 H (0.90-2.90) K/uL Waldo # (Auto) 0.80 (0.00-0.90) K/UL Eos # (Auto) 0.40 (0.00-0.50) K/uL Baso # (Auto) 0.10 (0.00-0.30) K/uL Abs Immat Gran (auto) 0.00 (0.00-0.30) K/uL Imm/Tot Granulo (auto) 0.2 % Sodium 143 (135-149) mmol/L Potassium 4.5 (3.6-5.1) mmol/L Chloride 109 (96-114) mmol/L Carbon Dioxide 27 (20-32) mmol/L BUN 21 (7-30) mg/dL Creatinine 1.1 (0.5-1.5) mg/dL Estimated GFR 77 ml/min Glucose 134 H (60-115) mg/dL Calcium 9.3 (8.4-10.6) mg/dL Total Bilirubin 0.4 (0.1-1.5) mg/dL Direct Bilirubin 0.1 (0.0-0.5) mg/dL AST 34 (12-35) U/L ALT 40 (4-50) U/L Alkaline Phosphatase 68 (40-150) U/L C-Reactive Protein 0.7 (0.5-1.0) mg/dL Total Protein 7.8 (6.0-8.3) g/dL Albumin 4.6 (3.3-5.0) g/dL Lipase 128 (23-300) U/L Urine Color Yellow (Yellow) Urine Appearance Clear (Clear) Urine pH 5.5 (5.0-8.5) Ur Specific [place] 1.025 (1.000-1.030) Urine Protein Negative (Negative) Urine Glucose (UA) Negative (Negative) Urine Ketones Negative (Negative) Urine Blood 1+ A (Negative) Urine Nitrite Negative (Negative) Urine Bilirubin Negative (Negative) Urine Urobilinogen 0.2 (0.2-1.0) Ur Leukocyte Esterase Negative (Negative) Urine RBC 0-2 (0-2) Urine WBC 0-2 (0-5) Ur Squamous Epith Cells None (None-Few) Urine Bacteria None (None) Discharge Plan Discharge Clinical Impression: Abdominal pain, epigastric Patient Disposition: Home, Self-Care Condition: Stable Additional Instructions: Take this medication omeprazole daily for 2 weeks and then reassess much discomfort you have. If it seems to be continuing I would follow in your clinic for further evaluation or more extensive imaging if they think it is necessary. In the meantime might also back off on the spicy food a little bit. Could try liquid antacid/anti-gas medication for breakthrough pain if needed Return for marked increase in pain, associated with shortness of breath lightheadedness or sweatiness. [place] zeke medicamento omeprazol diariamente martha 2 semanas y luego vuelva a evaluar muchas molestias que tenga. Si parece que contin?a, seguir?a en rodriguez cl?rose para amanda evaluaci?n adicional o im?genes m?s extensas si creen que es necesario. Mientras tanto, tambi?n podr?a retroceder un poco en la comida picante. Podr?a probar medicamentos anti?cidos l?quidos / antigases para el dolor irruptivo si es necesario Retorno para un marcado aumento del dolor, asociado con dificultad para respirar, aturdimiento o sudoraci?n. Prescriptions: New omeprazole 20 mg capsule,delayed release(DR/EC) 40 mg PO DAILY 15 Days Qty: 30 0RF Rx Instructions: Can substitute singular 40 mg capsule if available No Action metformin 500 mg tablet Patient Comments: TAKE TWO TABLETS BY MOUTH TWICE A DAY simvastatin 10 mg tablet Patient Comments: TAKE ONE TABLET BY MOUTH EVERY DAY IN THE EVENING aspirin 81 mg tablet,delayed release (DR/EC) Patient Comments: TAKE ONE TABLET BY MOUTH EVERY DAY lisinopril 10 mg tablet Patient Comments: TAKE ONE TABLET BY MOUTH EVERY DAY glipizide 5 mg tablet Patient Comments: TAKE ONE TABLET(5MG) BY MOUTH EVERY DAY Follow Up/Referrals: Provider,Not a Local [Referring] - Stand Alone Forms: MyHealth Info Instructions
--- NOTE | 2023-04-14 18:13 | CRLHL7_ITS ---
For Patients: As a result of the Cures Act, medical imaging exams and procedure reports are released immediately into your electronic medical record. You may view this report before your referring provider. If you have questions, please contact your health care provider. INDICATION: Subxiphoid pain TECHNIQUE: Chest 1 view COMPARISON: None FINDINGS: Cardiovascular and mediastinum: Heart size and vasculature are normal in caliber and appearance. Lungs and pleural spaces: Incidental 9 millimeter calcified granuloma within the left midlung. No sign of infiltrate or mass. No sign of pleural effusion. No pneumothorax. Bones and soft tissues: No significant findings. IMPRESSION: No acute findings. Dictated by Dylan Johnson MD @ 04/14/2023 7:30:29 PM (Electronically Signed)
[2023-04-14 18:30] LABS: Basophils Percent Auto 0.6 % (0.0-3.0); Eosinophils Percent Auto 3.4 % (0.0-7.0); Hematocrit 45.3 % (37.0-53.0); Hemoglobin* 14.6 gm/dL (13.5-17.5); Immature Granulocytes Pct Auto 0.2 %; Lymphocytes Percent Auto 31.3 % (20-44); Mean Corpuscular HGB Conc 32 gm/dL (32-36); Mean Corpuscular Hemoglobin 30 pg (26-34); Mean Corpuscular Volume 94 fL (80-100); Monocytes Percent Auto 6.3 % (0.0-11.0); Neutrophils Percent Auto 58.2 % (42.0-72.0); Platelet Count* 329 K/uL (140-440); RDW Coefficient of Variation % 13.1 % (11.5-15.5); Red Blood Count 4.84 m/uL (4.30-5.90); White Blood Count* 12.31 K/uL (4.50-11.00)
[2023-04-14 18:31] LABS: Slide Review Reflex No
[2023-04-14 18:36] LABS: Appearance Urine Clear (Clear); Bilirubin Urine Negative (Negative); Blood Urine 1+ (Negative); Color Urine Yellow (Yellow); Glucose Urine Negative (Negative); Ketones Urine Negative (Negative); Leukocyte Esterase Urine Negative (Negative); Nitrite Urine Negative (Negative); Protein Urine Negative (Negative); Specific Gravity Urine 1.025 (1.000-1.030); Urobilinogen Urine 0.2 (0.2-1.0); pH Urine 5.5 (5.0-8.5)
[2023-04-14 18:43] LABS: RBC Urine 0-2 (0-2); WBC Urine 0-2 (0-5)
[2023-04-14 18:45] LABS: Albumin* 4.6 g/dL (3.3-5.0)
[2023-04-14 18:46] LABS: Chloride* 109 mmol/L (96-114); Potassium* 4.5 mmol/L (3.6-5.1); Sodium* 143 mmol/L (135-149)
[2023-04-14 18:48] LABS: Alkaline Phosphatase* 68 U/L (40-150); Aspartate Amino Transferase* 34 U/L (12-35); Bilirubin Direct* 0.1 mg/dL (0.0-0.5); Bilirubin Total* 0.4 mg/dL (0.1-1.5); Total Protein* 7.8 g/dL (6.0-8.3)
[2023-04-14 18:49] LABS: Alanine Aminotransferase* 40 U/L (4-50); Creatinine* 1.1 mg/dL (0.5-1.5); Estimated Glomerular Filt Rate 77 ml/min; Lipase* 128 U/L (23-300)
[2023-04-14 18:50] LABS: Blood Urea Nitrogen* 21 mg/dL (7-30); Calcium* 9.3 mg/dL (8.4-10.6); Carbon Dioxide* 27 mmol/L (20-32); Glucose* 134 mg/dL (60-115)
[2023-04-14 18:53] LABS: C Reactive Protein* 0.7 mg/dL (0.5-1.0)
[2023-04-14] MEDS: OMEPRAZOLE 20 MG CAPSULE DR 40 MG PO (19:59)
[2023-04-14 20:00] VITALS: BP 138/88; PULSE 68; RESP 16; TEMP 36.4; O2SAT 97
== END 2023-04-14 20:04 | disposition home or self-care (01) ==
PROVIDERS: Emergency Provider Family Medicine; PCP Internal Medicine
DX: R10.13 Epigastric pain (principal)
CPT/HCPCS: 36415; 71045; 80048; 80076; 81001; 83690; 85025; 86140; 99284; A9270

== ENCOUNTER 2023-07-15 10:26 | Outpatient (REF) | payer OTHER, SELFPAY ==
[2023-07-15 10:51] LABS: Hemoglobin A1C* 7.4 % (0-5.6)
[2023-07-15 11:00] LABS: Albumin* 4.7 g/dL (3.3-5.0); Chloride* 108 mmol/L (96-114); Potassium* 4.1 mmol/L (3.6-5.1); Sodium* 145 mmol/L (135-149)
[2023-07-15 11:02] LABS: Anion Gap 9 mEq/L (7-15); Bilirubin Total* 0.3 mg/dL (0.1-1.5); Carbon Dioxide* 28 mmol/L (20-32); Cholesterol* 174 mg/dL (90-199); Creatinine* 1.1 mg/dL (0.5-1.5); Estimated Glomerular Filt Rate 76 ml/min
[2023-07-15 11:03] LABS: Alanine Aminotransferase* 41 U/L (4-50); Alkaline Phosphatase* 74 U/L (40-150); Aspartate Amino Transferase* 35 U/L (12-35); Blood Urea Nitrogen* 17 mg/dL (7-30); Calcium* 9.6 mg/dL (8.4-10.6); Glucose* 170 mg/dL (60-115); Total Protein* 7.7 g/dL (6.0-8.3); Triglycerides* 250 mg/dL (40-149)
[2023-07-15 11:04] LABS: HDL Cholesterol* 46 mg/dL (>=40); LDL Cholesterol Calculated 78 mg/dL (<100)
== END 2023-07-15 10:27 | disposition home or self-care (01) ==
LOC: NPINS 10:26
PROVIDERS: PCP Internal Medicine; Visit Provider Family Medicine
DX: E11.9 Type 2 diabetes mellitus without complications (principal); E78.5 Hyperlipidemia, unspecified; I10 Essential (primary) hypertension
CPT/HCPCS: 80053; 80061; 83036